=== PATIENT | female | born 1960 | race Caucasian/White ===

== ENCOUNTER 2018-04-05 15:09 | Emergency (ER) | payer OTHER ==
[~2018-04-05] VITALS: Ht 160 cm; Wt 54.0 kg
[2018-04-05 16:02] LABS: ABSOLUTE BASOPHIL COUNT 0 /CUMM (0.0-0.2); ABSOLUTE EOSINOPHIL COUNT 0 /CUMM (0.0-0.7); ABSOLUTE LYMPH COUNT 0.6 /CUMM (1.2-3.4); ABSOLUTE MONOCYTE COUNT 0.2 /CUMM (0.10-0.60); BASOPHIL % 0.2 % (0.0-2.0); EOSINOPHIL % 0.6 % (0-5); GRANULOCYTE % 87.6 % (42.2-75.2); MEAN CORPUSCULAR HGB 32.4 PG (27.0-31.0); MEAN CORPUSCULAR HGB CONC 33.6 G/DL (33.0-37.0); MEAN CORPUSCULAR VOLUME 96.5 FL (81.0-99.0); MEAN PLATELET VOLUME 6.9 FL (7.4-10.4); PLATELET COUNT 290 /CUMM (130-400); RBC DISTRIBUTION WIDTH 13.1 % (11.5-14.5); RED BLOOD CELL CT 4.04 /CUMM (4.20-5.40); WHITE BLOOD CELL COUNT 6.9 /CUMM (4.8-10.8)
--- NOTE | 2018-04-05 17:13 | ED GENERAL ADULT ---
History of Present Illness General Chief Complaint: General Adult Stated Complaint: SENT IN BY PMD FOR IV ANTIBIOTICS Source: patient Exam Limitations: no limitations Vital Signs & Intake/Output Vital Signs & Intake/Output Vital Signs Date Time Temp Pulse Resp B/P B/P Pulse O2 O2 Flow FiO2 Mean Ox Delivery Rate 04/05 1840 97.6 98 17 107/60 99 Room Air 04/05 1515 98.0 119 18 106/67 98 Room Air Allergies Coded Allergies: acetaminophen (From VICODIN) (Severe, RECTAL BLEEDING 04/05/18) hydrocodone (From VICODIN) (Severe, RECTAL BLEEDING 04/05/18) Reconcile Medications Ketorolac Tromethamine 10 MG TABLET 1 TAB PO TID PRN PAIN Triage Note: 57 YO FEMALE TO TRIAGE FROM DR MEEKS OFFICE FOR TREATMENT OF BABIOSISOS. C/O BODY ACHES/FATIGUE/WEAKNESS. STATES SHE HAD BLOOD WORK DRAWN A COUPLE DAYS AGO AND GOT RESULTS BACK TODAY. Triage Nurses Notes Reviewed? yes Onset: Gradual Duration: constant Timing: recent history Severity: moderate Severity Numbers: 5 HPI: Patient is a 57-year-old female with past medical history of MS who is in every day smoker who presents emergency room stating that approximately 2 weeks ago she began having gradual onset of generalized weakness fatigue and body aches intermittent chills and fevers and which she followed up with her primary care doctor last week blood work was obtained patient was advised to present to emergency room for concerns of BABESIOSIS Patient denies any specific tick bite or rash Patient can tolerate by mouth Denies any nausea vomiting diarrhea (Diogenes Persaud) Past History Travel History Traveled to [place] past 21 day No Medical History Any Pertinent Medical History? 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 No (Diogenes Persaud) Review of Systems Review of Systems Constitutional: Reports: see HPI, chills, fever, malaise. EENTM: Reports: no symptoms. Respiratory: Reports: no symptoms. Cardiovascular: Reports: no symptoms. GI: Reports: no symptoms. Genitourinary: Reports: no symptoms. Musculoskeletal: Reports: see HPI. Skin: Reports: no symptoms. Neurological/Psychological: Reports: no symptoms. Hematologic/Endocrine: Reports: no symptoms. Immunologic/Allergic: Reports: no symptoms. All Other Systems: Reviewed and Negative (Diogenes Persaud) Physical Exam Physical Exam General Appearance: no apparent distress, alert Head: atraumatic Eyes: Bilateral: normal appearance, PERRL, EOMI. Ears, Nose, Throat: normal pharynx, normal ENT inspection Neck: normal inspection Respiratory: normal breath sounds, chest non-tender Cardiovascular: tachycardia Gastrointestinal: normal bowel sounds, soft, non-tender Extremities: normal inspection, no edema Skin: intact, normal color, warm/dry Core Measures ACS in differential dx? No CVA/TIA Diagnosis: No Sepsis Present: No Sepsis Focused Exam Completed? No (Diogenes Persaud) Progress Differential Diagnoses I considered the following diagnoses in my evaluation of the patient: [Lyme disease, sepsis, BABESIOSIS] Plan of Care: Orders Procedure Date/time Status LACTIC ACID 04/05 1818 Active Add-on Test (ER Only) 04/05 1712 Active LYME TITRE 04/05 1553 Active BLOOD CULTURE 04/05 1518 Active LACTIC ACID 04/05 1518 Complete WESTERGREN SED RATE 04/05 1518 Complete COMPREHENSIVE METABOLIC PANEL 04/05 1518 Complete CBC WITHOUT DIFFERENTIAL 04/05 1518 Complete Laboratory Tests 04/05/18 1553: Anion Gap 10, Estimated GFR > 60, BUN/Creatinine Ratio 26.0 H, Glucose 176 H, Lactic Acid 1.4, Calcium 9.2, Total Bilirubin 0.5, AST 24, ALT 22, Alkaline Phosphatase 98, Total Protein 7.2, Albumin 3.9, Globulin 3.3, Albumin/Globulin Ratio 1.2, CBC w Diff MAN DIFF ORDERED, RBC 4.04 L, MCV 96.5, MCH 32.4 H, MCHC 33.6, RDW 13.1, MPV 6.9 L, Gran % 87.6 H, Lymphocytes % 9.1 L, Monocytes % 2.5, Eosinophils % 0.6, Basophils % 0.2, Absolute Granulocytes 6.0, Absolute Lymphocytes 0.6 L, Absolute Monocytes 0.2, Absolute Eosinophils 0, Absolute Basophils 0, Platelet Estimate VERIFIED BY SMEAR, ESR Westergren 88 H, Lyme Disease Antibody Pending Microbiology 04/05 1552 BLOOD: Blood Culture - RECD 04/05 1546 BLOOD: Blood Culture - RECD On initial presentation patient was afebrile no leukocytosis no concerns of sepsis, I did discuss with Dr. Wilson, her primary care doctor in which she ordered a PCR which was negative and patient had concerns of elevated Lyme titer and which doxycycline, ATOVAQUONE, and azithromycin WAS ALREADY SENT BY HER TO HER PHARMACY AND IS AWAITING, PT HAS NOT BEGUN THESE MEDICATIONS YET. Discussed patient Melvin Gramajo MD who was aware OF PT ED PRESENTATION I had a long extensive conversation with her primary care DRSHANNAN, Melvin Gramajo MD and the patient in which it was concluded that the plan will be to try the medications as stated above and to follow-up with closely with her primary care doctor as she will call tomorrow. Dr. Wilson also stated that she will order repeat blood work Patient agrees with disposition plan and has no questions Initial ED EKG: none (Diogenes Persaud) Departure Departure Disposition: HOME OR SELF CARE Condition: Stable Clinical Impression Primary Impression: Babesiosis Referrals: Shannan FRANCIS,Amina Galeano (PCP/Family) Additional Instructions: As discussed begin the prescriptions for doxycycline, atovaquone, azithromycin for the full course and begin the prescription of Toradol for pain and inflammation, per prescription is waiting at [facility] Follow-up tomorrow with her primary care doctor. If symptoms worsen or if he develop new concerning symptom return to emergency room Departure Forms: Customer Survey General Discharge Information Prescriptions: Current Visit Scripts Ketorolac Tromethamine 1 TAB PO TID PRN PAIN #15 TAB (Diogenes Persaud) PA/LOG TUMBLER Co-Sign Statement Statement: ED Attending supervision documentation- [] I saw and evaluated the patient. I have also reviewed all the pertinent lab results and diagnostic results. I agree with the findings and the plan of care as documented in the PA's/LOG TUMBLER's documentation. [x] I have reviewed the ED Record and agree with the PA's/LOG TUMBLER's documentation. [] Additions or exceptions (if any) to the PAs/LOG TUMBLER's note and plan are summarized below: [] (Salty Lino DO) Critical Care Note Critical Care Note Critical Care Time: non-applicable (Diogenes Persaud)
[2018-04-05 18:40] VITALS: BP 107/60
[2018-04-05] MEDS ORDERED: KETOROLAC TROME10 M1 PO (19:02)
== END 2018-04-05 19:29 ==
LOC: ERH 15:09
PROVIDERS: Physician Assistant Medical
DX: B60.0 Babesiosis (principal)
CPT/HCPCS: 86618; 87040; 96374; J1885